=== PATIENT | female | born 1960 | race Caucasian/White ===

== ENCOUNTER 2017-09-09 16:03 | Inpatient (IN) | payer MEDICARE, MEDICAID ==
[~2017-09-09] VITALS: Ht 165.1 cm; Wt 53.4 kg
[~2017-09-09 16:03] MED LIST: CEPH-571 PO
[2017-09-09 16:39] LABS: BASOPHILS % (AUTO) 0.1 % (0-1); EOSINOPHILS # (AUTO) 0.2 X10'3 (0-0.9); EOSINOPHILS % (AUTO) 1.5 % (0-6); HEMOGLOBIN 9.7 g/dl (12.0-16.0); LYMPHOCYTES # (AUTO) 0.4 X10'3 (1.1-4.8); LYMPHOCYTES % (AUTO) 4.1 % (21-51); MEAN CORPUSCULAR HEMOGLOBIN 30.4 PG (27.0-31.0); MEAN CORPUSCULAR HGB CONC 34.7 % (33.0-36.5); MEAN CORPUSCULAR VOLUME 87.6 FL (78-98); MEAN PLATELET VOLUME 6.4 FL (7.4-10.4); MONOCYTES # (AUTO) 0.6 X10'3 (0-0.9); MONOCYTES % (AUTO) 5.3 % (2-12); NEUTROPHILS # (AUTO) 9.8 X10'3 (1.8-7.7); PLATELET COUNT 511 X10'3 (140-440)
[2017-09-09 16:49] LABS: PROTHROMBIN TIME 10.2 SECONDS (9.0-12.0)
[2017-09-09 16:55] LABS: ALANINE AMINOTRANSFERASE 19 U/L (12-78); ALBUMIN 2.5 G/DL (3.4-5.0); ALBUMIN/GLOBULIN RATIO 0.6 (1.1-1.5); ALKALINE PHOSPHATASE 86 IU/L (46-116); ANION GAP 12 (8-16); ASPARTATE AMINO TRANSFERASE 16 U/L (10-37); BILIRUBIN,TOTAL 0.3 MG/DL (0.1-1.0); BLOOD UREA NITROGEN 75 MG/DL (7-18); CALCIUM 8.7 MG/DL (8.5-10.1); CHLORIDE 93 MMOL/L (99-107); GLUCOSE 116 MG/DL (70-104); SODIUM 135 MMOL/L (135-145); TOTAL PROTEIN 6.5 G/DL (6.4-8.2); eGFR 3 ML/MIN
[2017-09-09] MEDS ORDERED: VANCOMYCIN IP PRN (21:35)
[2017-09-09] MEDS ORDERED: CEFTAZIDIME IP PRN (21:35)
[2017-09-09] MEDS ORDERED: PERIT DIALYSIS IP PRN (21:35)
[2017-09-09] MEDS ORDERED: DEXT IP PRN (21:35)
[2017-09-09 22:17] LABS: LIPASE 201 U/L (73-393)
[2017-09-10] VITALS (19 sets, daily range): BP systolic 120–188; BP diastolic 80–113
[2017-09-10] MEDS: ipratropium/albuterol 3ml nebule NEB SCH ×3 (00:05→13:04)
[2017-09-10 01:35] LABS: LDH,BODY FLUID 181 U/L
[2017-09-10 01:46] LABS: TOTAL PROTEIN,BODY FLUID < 2.0 G/DL
[2017-09-10] MEDS: pantoprazole 40 MG vial IV SCH ×2 (01:54→08:41)
[2017-09-10 02:36] LABS: BF WBC COUNT 15000 /CU MM (0-1000); BFAPPEAR CLOUDY; BFCOLOR STRAW; BFVOLUME 5 ML
[2017-09-10 02:37] LABS: BF RBC COUNT 121 /CU MM
[2017-09-10 02:44] LABS: LYMPHOCYTES,BODY FLUID 17 %; MONOCYTES,BODY FLUID 12 %; NEUTROPHILS,BODY FLUID 68 %
[2017-09-10 02:45] LABS: BF MESOTHELIAL CELLS MODERATE; EOSINOPHILS,BODY FLUID 3 %
[2017-09-10 06:40] LABS: BASOPHILS % (AUTO) 0.5 % (0-1); EOSINOPHILS # (AUTO) 0.2 X10'3 (0-0.9); EOSINOPHILS % (AUTO) 2.6 % (0-6); HEMATOCRIT 24.9 % (35.0-45.0); HEMOGLOBIN 8.6 g/dl (12.0-16.0); LYMPHOCYTES # (AUTO) 0.7 X10'3 (1.1-4.8); LYMPHOCYTES % (AUTO) 9.3 % (21-51); MEAN CORPUSCULAR HEMOGLOBIN 30.1 PG (27.0-31.0); MEAN CORPUSCULAR HGB CONC 34.6 % (33.0-36.5); MEAN CORPUSCULAR VOLUME 87.2 FL (78-98); MEAN PLATELET VOLUME 6.7 FL (7.4-10.4); MONOCYTES # (AUTO) 0.7 X10'3 (0-0.9); MONOCYTES % (AUTO) 8.6 % (2-12); PLATELET COUNT 415 X10'3 (140-440); RED BLOOD COUNT 2.86 X10'6 (4.20-5.60); RED CELL DISTRIBUTION WIDTH 14.7 % (11.5-14.5); WHITE BLOOD COUNT 7.6 X10'3 (4.5-11.0)
[2017-09-10 06:51] LABS: PARTIAL THROMBOPLASTIN TIME 30 SECONDS (22-32); PROTHROMBIN TIME 10.2 SECONDS (9.0-12.0)
[2017-09-10] MEDS ORDERED: ALBU2.5V12 NEB (07:01)
[2017-09-10] MEDS ORDERED: MYCO360T3 PO (07:03)
[2017-09-10] MEDS ORDERED: TACR5CAP8 PO (07:05)
[2017-09-10] MEDS ORDERED: TACR1CAP28 PO (07:06)
[2017-09-10] MEDS ORDERED: DILT120T4 PO (07:08)
[2017-09-10] MEDS ORDERED: DOXE50CA4 PO (07:10)
[2017-09-10] MEDS ORDERED: DOXE10CA2 PO (07:10)
[2017-09-10] MEDS ORDERED: CHOL500026 PO (07:12)
[2017-09-10] MEDS ORDERED: CINA30TA PO (07:13)
[2017-09-10] MEDS ORDERED: ERGO500054 PO (07:15)
[2017-09-10] MEDS ORDERED: TRAM50TA2 PO ×2 (07:16→10:50)
[2017-09-10] MEDS ORDERED: SEVE800T8 PO (07:19)
[2017-09-10] MEDS ORDERED: TIOT4MIS5 (07:20)
[2017-09-10] MEDS ORDERED: ALBU18HF2 INH (07:21)
[2017-09-10 07:25] LABS: ALANINE AMINOTRANSFERASE 16 U/L (12-78); ALBUMIN 2.1 G/DL (3.4-5.0); ALBUMIN/GLOBULIN RATIO 0.6 (1.1-1.5); ALKALINE PHOSPHATASE 70 IU/L (46-116); ANION GAP 14 (8-16); ASPARTATE AMINO TRANSFERASE 14 U/L (10-37); BILIRUBIN,TOTAL 0.3 MG/DL (0.1-1.0); BLOOD UREA NITROGEN 73 MG/DL (7-18); BUN/CREATININE RATIO 5.8 (6.6-38.0); CALCIUM 8.5 MG/DL (8.5-10.1); CHLORIDE 95 MMOL/L (99-107); GLUCOSE 84 MG/DL (70-104); MAGNESIUM 1.4 MG/DL (1.5-2.4); PHOSPHORUS 7.5 MG/DL (2.3-4.5); SODIUM 137 MMOL/L (135-145); TOTAL CARBON DIOXIDE 27.8 MMOL/L (24-32); TOTAL PROTEIN 5.6 G/DL (6.4-8.2); eGFR 3 ML/MIN
[2017-09-10] MEDS ORDERED: GENT30OI2 TOP (07:30)
[2017-09-10] MEDS: morphine 4 MG/ML inj SYRINge IV PRN (08:50)
[2017-09-10] MEDS ORDERED: albuterol 2.5 MG/3 ML nebule NEB PRN (09:35)
[2017-09-10] MEDS: diltiazem CD 120mg capsule (once-daily) PO SCH (10:29)
[2017-09-10] MEDS: heparin, porcine 5000 units/ml vial SQ SCH ×2 (10:30→20:45)
[2017-09-10] MEDS ORDERED: MONT10TA24 PO (10:54)
[2017-09-10] MEDS: sevelamer carbonate 800mg tablet PO SCH ×2 (12:30→17:30)
[2017-09-10] MEDS: ipratropium 0.5 MG/2.5ML nebule NEB SCH ×3 (13:16→21:32)
[2017-09-10] MEDS: cinacalcet 30mg tablet PO SCH ×2 (13:33→20:52)
[2017-09-10] MEDS ORDERED: non-formulary drug (Albuterol Sulfate 1 VIAL) NEB SCH (14:00)
[2017-09-10] MEDS ORDERED: traMADol 50MG tablet PO PRN (14:00)
[2017-09-10] MEDS ORDERED: vancomycin/NS 1 GM ADD-VANTAGE 250 ML IV PRN (15:00)
[2017-09-10] MEDS: piperacillin-tazo 2.25gm/50ml 50 ML IV SCH ×2 (15:00→20:43)
[2017-09-10] MEDS ORDERED: LIDOcaine 1% 30ml vial 30 ML ONE (15:31)
[2017-09-10] MEDS ORDERED: povidone-iodine 10% topical ointment 28.4gm TP ONE (15:31)
[2017-09-10] MEDS ORDERED: vancomycin/NS 1 GM ADD-VANTAGE 250 ML IV ONE (15:45)
[2017-09-10] MEDS: gentamicin 0.1% topical ointment 15gm TP SCH (16:00)
[2017-09-10] MEDS ORDERED: ringers solution, lacted 1,000 ML IV SCH (16:47)
[2017-09-10] MEDS ORDERED: ondansetron/PF 4mg/2ml inj IV PRN (16:50)
[2017-09-10] MEDS ORDERED: morphine 4 MG/ML inj SYRINge IV PRN ×2 (16:50)
[2017-09-10] MEDS ORDERED: proCHLORperazine 10 MG/2 ml inj IV PRN (16:50)
[2017-09-10] MEDS ORDERED: BUPIVAcaine/PF 2.5 mg/ml (0.25%) 30ml vial ONE (17:01)
[2017-09-10] MEDS ORDERED: sevoflurane 250ml liquid IH ONE (17:15)
[2017-09-10 17:16] LABS: ISTAT CREATININE 13.5 mg/dL (0.6-1.1); ISTAT HGB 8.2 g/dl (12.0-16.0); ISTAT IONIZED CALCIUM 1.05 mmol/L (1.03-1.32); POC BUN/CREATININE RATIO 5.9 (6.6-38.0)
[2017-09-10] MEDS ORDERED: Potassium Cl 40 MEQ in NS 500 ML IV ONE (17:20)
[2017-09-10] MEDS ORDERED: fentaNYL/PF 50MCG/1 ML 2ML syringe ONE (17:25)
[2017-09-10] MEDS ORDERED: midazolam 2 mg/2 ml injection ONE (17:30)
[2017-09-10 17:36] LABS: ISTAT K 2.8 mmol/L (3.5-5.1)
[2017-09-10] MEDS ORDERED: propofol inj 20 ML IV ONE (17:50)
[2017-09-10] MEDS ORDERED: LIDOcaine 2% (20mg/ml) 5ml vial ONE (17:51)
[2017-09-10] MEDS: ondansetron/PF 4mg/2ml inj IV PRN (20:40)
[2017-09-10] MEDS: doxepin 10mg capsule PO SCH (20:50)
[2017-09-10] MEDS: tacrolimus anhydrous 1mg capsule PO SCH ×2 (20:51→20:52)
[2017-09-10] MEDS: mycophenolate sod SR tablet 180 MG TABLET.DR PO SCH (20:51)
[2017-09-11] MEDS: ipratropium 0.5 MG/2.5ML nebule NEB SCH ×3 (02:00→20:44)
[2017-09-11] MEDS: piperacillin-tazo 2.25gm/50ml 50 ML IV SCH ×4 (02:03→21:31)
[2017-09-11 02:45] VITALS: BP 138/75
[2017-09-11] MEDS: VANCOMYCIN LEVEL IV SCH (03:00)
[2017-09-11] MEDS: heparin 1,000 units/ml 10ml inj HE ONE ×2 (05:23→17:02)
[2017-09-11] MEDS: heparin, porcine 5000 units/ml vial SQ SCH ×2 (05:26→21:50)
[2017-09-11 06:00] VITALS: BP 143/81
[2017-09-11] MEDS: sevelamer carbonate 800mg tablet PO SCH ×3 (07:30→21:29)
[2017-09-11 07:37] LABS: BASOPHILS % (AUTO) 0.2 % (0-1); EOSINOPHILS # (AUTO) 0.4 X10'3 (0-0.9); EOSINOPHILS % (AUTO) 4.8 % (0-6); HEMATOCRIT 23.7 % (35.0-45.0); HEMOGLOBIN 8.1 g/dl (12.0-16.0); LYMPHOCYTES # (AUTO) 0.7 X10'3 (1.1-4.8); LYMPHOCYTES % (AUTO) 9.3 % (21-51); MEAN CORPUSCULAR HEMOGLOBIN 30.3 PG (27.0-31.0); MEAN CORPUSCULAR HGB CONC 34.4 % (33.0-36.5); MEAN CORPUSCULAR VOLUME 88.2 FL (78-98); MEAN PLATELET VOLUME 6.4 FL (7.4-10.4); MONOCYTES # (AUTO) 0.5 X10'3 (0-0.9); MONOCYTES % (AUTO) 7.1 % (2-12); NEUTROPHILS # (AUTO) 5.9 X10'3 (1.8-7.7); NEUTROPHILS % (AUTO) 78.6 % (42-75); PLATELET COUNT 371 X10'3 (140-440); RED BLOOD COUNT 2.69 X10'6 (4.20-5.60); RED CELL DISTRIBUTION WIDTH 14.8 % (11.5-14.5); WHITE BLOOD COUNT 7.6 X10'3 (4.5-11.0)
[2017-09-11 07:48] LABS: PARTIAL THROMBOPLASTIN TIME 29 SECONDS (22-32); PROTHROMBIN TIME 10.2 SECONDS (9.0-12.0)
[2017-09-11] MEDS: gentamicin 0.1% topical ointment 15gm TP SCH ×3 (08:00→15:56)
[2017-09-11] MEDS ORDERED: heparin 1,000unit/ml 10ml vial 10 ML IV ONE (08:00)
[2017-09-11] MEDS ORDERED: normal saline 1000ml 250 ML IV PRN (08:00)
[2017-09-11] MEDS ORDERED: TIOTROPIUM BROMIDE SCH (08:00)
[2017-09-11] MEDS ORDERED: heparin 1,000 units/ml 10ml inj HE ONE (08:00)
[2017-09-11] MEDS ORDERED: epoetin 20,000 units/ml inj IV ONE (08:00)
[2017-09-11 08:01] LABS: ALANINE AMINOTRANSFERASE 17 U/L (12-78); ALBUMIN/GLOBULIN RATIO 0.6 (1.1-1.5); ALKALINE PHOSPHATASE 69 IU/L (46-116); ANION GAP 14 (8-16); ASPARTATE AMINO TRANSFERASE 16 U/L (10-37); BILIRUBIN,TOTAL 0.3 MG/DL (0.1-1.0); BLOOD UREA NITROGEN 79 MG/DL (7-18); BUN/CREATININE RATIO 5.7 (6.6-38.0); CALCIUM 7.2 MG/DL (8.5-10.1); CHLORIDE 97 MMOL/L (99-107); GLUCOSE 84 MG/DL (70-104); MAGNESIUM 1.5 MG/DL (1.5-2.4); PHOSPHORUS 7.9 MG/DL (2.3-4.5); POTASSIUM 3.2 MMOL/L (3.5-5.1); SODIUM 137 MMOL/L (135-145); TOTAL CARBON DIOXIDE 26.1 MMOL/L (24-32); TOTAL PROTEIN 5.3 G/DL (6.4-8.2); eGFR 3 ML/MIN
[2017-09-11 08:12] LABS: VANCOMYCIN,TROUGH 30.4 UG/ML (6.0-14.0)
[2017-09-11 08:33] VITALS: BP 145/81
[2017-09-11] MEDS ORDERED: midazolam 2 mg/2 ml injection IV PRN (09:00)
[2017-09-11] MEDS ORDERED: LIDOcaine 1%/PF (10mg/ml) 5ml vial SQ ONE (09:00)
[2017-09-11] MEDS ORDERED: fentaNYL/PF 50MCG/1 ML 2ML syringe IV PRN (09:00)
[2017-09-11] MEDS ORDERED: LIDOcaine 1%/PF (10mg/ml) 5ml vial ONE (09:29)
[2017-09-11] MEDS ORDERED: fentaNYL/PF 50MCG/1 ML 2ML syringe ONE (09:34)
[2017-09-11] MEDS ORDERED: heparin 1,000unit/ml 10ml vial 10 ML ONE (09:34)
[2017-09-11 10:30] VITALS: BP 159/94
[2017-09-11] MEDS: pantoprazole 40 MG vial IV SCH (10:42)
[2017-09-11] MEDS: morphine 4 MG/ML inj SYRINge IV PRN ×2 (10:43→16:45)
[2017-09-11] MEDS: cinacalcet 30mg tablet PO SCH ×3 (10:45→21:44)
[2017-09-11] MEDS: vitamin D (cholecalciferol) 1,000 unit tablet PO SCH (10:45)
[2017-09-11] MEDS: tacrolimus anhydrous 1mg capsule PO SCH ×4 (10:45→21:43)
[2017-09-11] MEDS: diltiazem CD 120mg capsule (once-daily) PO SCH (10:46)
[2017-09-11] MEDS: mycophenolate sod SR tablet 180 MG TABLET.DR PO SCH ×2 (10:46→21:42)
[2017-09-11] MEDS: ondansetron/PF 4mg/2ml inj IV PRN (16:57)
[2017-09-11 18:00] VITALS: BP 150/93
[2017-09-11] MEDS: doxepin 10mg capsule PO SCH (21:42)
[2017-09-11] MEDS: lactobacillus rhamnosus 10,000 MMU CELLS/CAPSULE PO SCH (21:42)
[2017-09-11 22:00] VITALS: BP 164/99
[2017-09-12] MEDS: piperacillin-tazo 2.25gm/50ml 50 ML IV SCH ×4 (01:47→20:00)
[2017-09-12] MEDS: morphine 4 MG/ML inj SYRINge IV PRN ×3 (01:57→18:59)
[2017-09-12] MEDS: VANCOMYCIN LEVEL IV SCH ×2 (03:00→23:26)
[2017-09-12 05:17] LABS: BASOPHILS % (AUTO) 0.2 % (0-1); EOSINOPHILS # (AUTO) 0.4 X10'3 (0-0.9); EOSINOPHILS % (AUTO) 5.5 % (0-6); HEMATOCRIT 22.9 % (35.0-45.0); HEMOGLOBIN 7.9 g/dl (12.0-16.0); LYMPHOCYTES # (AUTO) 0.8 X10'3 (1.1-4.8); LYMPHOCYTES % (AUTO) 12.1 % (21-51); MEAN CORPUSCULAR HEMOGLOBIN 29.9 PG (27.0-31.0); MEAN CORPUSCULAR HGB CONC 34.3 % (33.0-36.5); MEAN CORPUSCULAR VOLUME 87.4 FL (78-98); MEAN PLATELET VOLUME 6.4 FL (7.4-10.4); MONOCYTES # (AUTO) 0.5 X10'3 (0-0.9); MONOCYTES % (AUTO) 7.8 % (2-12); NEUTROPHILS # (AUTO) 4.9 X10'3 (1.8-7.7); NEUTROPHILS % (AUTO) 74.4 % (42-75); PLATELET COUNT 320 X10'3 (140-440); RED BLOOD COUNT 2.62 X10'6 (4.20-5.60); RED CELL DISTRIBUTION WIDTH 14.8 % (11.5-14.5); WHITE BLOOD COUNT 6.6 X10'3 (4.5-11.0)
[2017-09-12 05:57] LABS: PARTIAL THROMBOPLASTIN TIME 30 SECONDS (22-32)
[2017-09-12 06:00] VITALS: BP 142/86
[2017-09-12 06:08] LABS: ALANINE AMINOTRANSFERASE 16 U/L (12-78); ALBUMIN 1.7 G/DL (3.4-5.0); ALBUMIN/GLOBULIN RATIO 0.5 (1.1-1.5); ALKALINE PHOSPHATASE 81 IU/L (46-116); ANION GAP 8 (8-16); ASPARTATE AMINO TRANSFERASE 23 U/L (10-37); BILIRUBIN,TOTAL 0.2 MG/DL (0.1-1.0); BLOOD UREA NITROGEN 16 MG/DL (7-18); BUN/CREATININE RATIO 3.2 (6.6-38.0); CALCIUM 7.4 MG/DL (8.5-10.1); CHLORIDE 103 MMOL/L (99-107); CREATININE 4.96 MG/DL (0.40-0.90); GLUCOSE 84 MG/DL (70-104); MAGNESIUM 1.5 MG/DL (1.5-2.4); PHOSPHORUS 3.3 MG/DL (2.3-4.5); POTASSIUM 3.8 MMOL/L (3.5-5.1); SODIUM 140 MMOL/L (135-145); TOTAL PROTEIN 5.1 G/DL (6.4-8.2); VANCOMYCIN,TROUGH 17.8 UG/ML (6.0-14.0); eGFR 9 ML/MIN
[2017-09-12] MEDS: ipratropium 0.5 MG/2.5ML nebule NEB SCH ×5 (08:00→20:18)
[2017-09-12] MEDS: gentamicin 0.1% topical ointment 15gm TP SCH ×3 (08:00→16:00)
[2017-09-12] MEDS: pantoprazole 40mg Tablet.DR PO SCH (08:30)
[2017-09-12] MEDS: mycophenolate sod SR tablet 180 MG TABLET.DR PO SCH ×2 (08:30→19:59)
[2017-09-12] MEDS: lactobacillus rhamnosus 10,000 MMU CELLS/CAPSULE PO SCH ×2 (08:30→19:59)
[2017-09-12] MEDS: sevelamer carbonate 800mg tablet PO SCH ×3 (08:30→18:55)
[2017-09-12] MEDS: cinacalcet 30mg tablet PO SCH ×3 (08:31→19:59)
[2017-09-12] MEDS: tacrolimus anhydrous 1mg capsule PO SCH ×3 (08:31→20:00)
[2017-09-12] MEDS: diltiazem CD 120mg capsule (once-daily) PO SCH (08:31)
[2017-09-12] MEDS: vitamin D (cholecalciferol) 1,000 unit tablet PO SCH (08:31)
[2017-09-12] MEDS: heparin, porcine 5000 units/ml vial SQ SCH ×2 (08:32→20:00)
[2017-09-12 10:00] VITALS: BP 133/84
[2017-09-12 18:00] VITALS: BP 147/83
[2017-09-12] MEDS: doxepin 10mg capsule PO SCH (19:59)
[2017-09-12 22:00] VITALS: BP 166/96
[2017-09-13] MEDS: ondansetron/PF 4mg/2ml inj IV PRN ×2 (01:17→19:45)
[2017-09-13] MEDS: piperacillin-tazo 2.25gm/50ml 50 ML IV SCH ×4 (01:20→19:48)
[2017-09-13] MEDS: ipratropium 0.5 MG/2.5ML nebule NEB SCH ×4 (02:00→21:21)
[2017-09-13 06:00] VITALS: BP 131/38
[2017-09-13 07:34] LABS: BASOPHILS % (AUTO) 0.4 % (0-1); EOSINOPHILS # (AUTO) 0.4 X10'3 (0-0.9); EOSINOPHILS % (AUTO) 5.1 % (0-6); HEMATOCRIT 24.5 % (35.0-45.0); HEMOGLOBIN 8.4 g/dl (12.0-16.0); LYMPHOCYTES # (AUTO) 0.8 X10'3 (1.1-4.8); LYMPHOCYTES % (AUTO) 9.8 % (21-51); MEAN CORPUSCULAR HEMOGLOBIN 30.3 PG (27.0-31.0); MEAN CORPUSCULAR HGB CONC 34.3 % (33.0-36.5); MEAN CORPUSCULAR VOLUME 88.2 FL (78-98); MEAN PLATELET VOLUME 6.2 FL (7.4-10.4); MONOCYTES # (AUTO) 0.5 X10'3 (0-0.9); MONOCYTES % (AUTO) 6.3 % (2-12); NEUTROPHILS # (AUTO) 6.2 X10'3 (1.8-7.7); NEUTROPHILS % (AUTO) 78.4 % (42-75); PLATELET COUNT 331 X10'3 (140-440); RED BLOOD COUNT 2.77 X10'6 (4.20-5.60); RED CELL DISTRIBUTION WIDTH 14.4 % (11.5-14.5); WHITE BLOOD COUNT 7.9 X10'3 (4.5-11.0)
[2017-09-13 07:44] LABS: PARTIAL THROMBOPLASTIN TIME 29 SECONDS (22-32); PROTHROMBIN TIME 10.2 SECONDS (9.0-12.0)
[2017-09-13 07:58] LABS: ALANINE AMINOTRANSFERASE 24 U/L (12-78); ALBUMIN 1.8 G/DL (3.4-5.0); ALBUMIN/GLOBULIN RATIO 0.5 (1.1-1.5); ALKALINE PHOSPHATASE 89 IU/L (46-116); ANION GAP 13 (8-16); ASPARTATE AMINO TRANSFERASE 19 U/L (10-37); BILIRUBIN,TOTAL 0.3 MG/DL (0.1-1.0); BLOOD UREA NITROGEN 22 MG/DL (7-18); CALCIUM 6.7 MG/DL (8.5-10.1); CHLORIDE 99 MMOL/L (99-107); CREATININE 7.38 MG/DL (0.40-0.90); GLUCOSE 103 MG/DL (70-104); MAGNESIUM 1.4 MG/DL (1.5-2.4); PHOSPHORUS 3.7 MG/DL (2.3-4.5); POTASSIUM 3.7 MMOL/L (3.5-5.1); SODIUM 139 MMOL/L (135-145); TOTAL CARBON DIOXIDE 27.5 MMOL/L (24-32); TOTAL PROTEIN 5.4 G/DL (6.4-8.2); VANCOMYCIN,RANDOM 18.1 UG/ML; eGFR 6 ML/MIN
[2017-09-13] MEDS: cinacalcet 30mg tablet PO SCH ×3 (08:00→19:51)
[2017-09-13] MEDS: gentamicin 0.1% topical ointment 15gm TP SCH ×4 (08:00→23:48)
[2017-09-13 10:00] VITALS: BP 150/102
[2017-09-13] MEDS: tacrolimus anhydrous 1mg capsule PO SCH ×2 (10:34→19:49)
[2017-09-13] MEDS: sevelamer carbonate 800mg tablet PO SCH ×3 (10:35→17:39)
[2017-09-13] MEDS: vitamin D (cholecalciferol) 1,000 unit tablet PO SCH (10:35)
[2017-09-13] MEDS: diltiazem CD 120mg capsule (once-daily) PO SCH (10:35)
[2017-09-13] MEDS: mycophenolate sod SR tablet 180 MG TABLET.DR PO SCH ×2 (10:35→19:51)
[2017-09-13] MEDS: lactobacillus rhamnosus 10,000 MMU CELLS/CAPSULE PO SCH ×2 (10:51→19:50)
[2017-09-13] MEDS: pantoprazole 40mg Tablet.DR PO SCH (10:52)
[2017-09-13] MEDS: heparin, porcine 5000 units/ml vial SQ SCH ×2 (10:52→19:50)
[2017-09-13 19:45] VITALS: BP 166/99
[2017-09-13] MEDS: doxepin 10mg capsule PO SCH (19:50)
[2017-09-14] MEDS: piperacillin-tazo 2.25gm/50ml 50 ML IV SCH ×2 (02:24→08:15)
[2017-09-14] MEDS: VANCOMYCIN LEVEL IV SCH (02:49)
[2017-09-14] MEDS: ipratropium 0.5 MG/2.5ML nebule NEB SCH ×3 (03:06→15:05)
[2017-09-14 06:00] VITALS: BP 162/103
[2017-09-14 07:07] LABS: BASOPHILS % (AUTO) 0.3 % (0-1); EOSINOPHILS # (AUTO) 0.4 X10'3 (0-0.9); EOSINOPHILS % (AUTO) 4.6 % (0-6); HEMOGLOBIN 8.6 g/dl (12.0-16.0); LYMPHOCYTES % (AUTO) 12.1 % (21-51); MEAN CORPUSCULAR HEMOGLOBIN 30.1 PG (27.0-31.0); MEAN CORPUSCULAR HGB CONC 34.2 % (33.0-36.5); MEAN CORPUSCULAR VOLUME 88.1 FL (78-98); MEAN PLATELET VOLUME 6.2 FL (7.4-10.4); MONOCYTES # (AUTO) 0.6 X10'3 (0-0.9); MONOCYTES % (AUTO) 6.8 % (2-12); NEUTROPHILS # (AUTO) 6.5 X10'3 (1.8-7.7); NEUTROPHILS % (AUTO) 76.2 % (42-75); PLATELET COUNT 337 X10'3 (140-440); RED BLOOD COUNT 2.84 X10'6 (4.20-5.60); RED CELL DISTRIBUTION WIDTH 14.4 % (11.5-14.5); WHITE BLOOD COUNT 8.6 X10'3 (4.5-11.0)
[2017-09-14 07:22] LABS: PARTIAL THROMBOPLASTIN TIME 30 SECONDS (22-32); PROTHROMBIN TIME 10.4 SECONDS (9.0-12.0)
[2017-09-14 07:30] LABS: ALANINE AMINOTRANSFERASE 23 U/L (12-78); ALBUMIN 1.8 G/DL (3.4-5.0); ALBUMIN/GLOBULIN RATIO 0.5 (1.1-1.5); ALKALINE PHOSPHATASE 100 IU/L (46-116); ANION GAP 14 (8-16); ASPARTATE AMINO TRANSFERASE 21 U/L (10-37); BILIRUBIN,TOTAL 0.3 MG/DL (0.1-1.0); BLOOD UREA NITROGEN 24 MG/DL (7-18); BUN/CREATININE RATIO 2.6 (6.6-38.0); CALCIUM 6.7 MG/DL (8.5-10.1); CHLORIDE 97 MMOL/L (99-107); CREATININE 9.36 MG/DL (0.40-0.90); GLUCOSE 84 MG/DL (70-104); MAGNESIUM 1.4 MG/DL (1.5-2.4); PHOSPHORUS 4.4 MG/DL (2.3-4.5); POTASSIUM 3.9 MMOL/L (3.5-5.1); SODIUM 136 MMOL/L (135-145); TOTAL CARBON DIOXIDE 25.2 MMOL/L (24-32); TOTAL PROTEIN 5.5 G/DL (6.4-8.2); VANCOMYCIN,RANDOM 17.7 UG/ML; eGFR 4 ML/MIN
[2017-09-14] MEDS: gentamicin 0.1% topical ointment 15gm TP SCH ×2 (08:00→16:00)
[2017-09-14] MEDS: sevelamer carbonate 800mg tablet PO SCH ×3 (08:14→17:38)
[2017-09-14] MEDS: pantoprazole 40mg Tablet.DR PO SCH (08:15)
[2017-09-14] MEDS: diltiazem CD 120mg capsule (once-daily) PO SCH (08:15)
[2017-09-14] MEDS: lactobacillus rhamnosus 10,000 MMU CELLS/CAPSULE PO SCH ×2 (08:15→20:35)
[2017-09-14] MEDS: cinacalcet 30mg tablet PO SCH ×3 (08:16→20:35)
[2017-09-14] MEDS: vitamin D (cholecalciferol) 1,000 unit tablet PO SCH (08:16)
[2017-09-14] MEDS: mycophenolate sod SR tablet 180 MG TABLET.DR PO SCH ×2 (08:17→21:26)
[2017-09-14] MEDS: tacrolimus anhydrous 1mg capsule PO SCH ×2 (08:18→20:35)
[2017-09-14] MEDS: heparin, porcine 5000 units/ml vial SQ SCH ×2 (08:21→20:35)
[2017-09-14 10:00] VITALS: BP 163/104
[2017-09-14] MEDS: morphine 4 MG/ML inj SYRINge IV PRN (13:19)
[2017-09-14 19:00] VITALS: BP 167/107
[2017-09-14] MEDS: doxepin 10mg capsule PO SCH (20:35)
[2017-09-14 22:00] VITALS: BP 170/122
[2017-09-15 01:05] VITALS: BP 165/69
[2017-09-15] MEDS: ondansetron/PF 4mg/2ml inj IV PRN (01:07)
[2017-09-15 06:37] LABS: BASOPHILS % (AUTO) 0.3 % (0-1); EOSINOPHILS # (AUTO) 0.3 X10'3 (0-0.9); EOSINOPHILS % (AUTO) 3.9 % (0-6); HEMATOCRIT 28.8 % (35.0-45.0); HEMOGLOBIN 9.9 g/dl (12.0-16.0); LYMPHOCYTES # (AUTO) 1.4 X10'3 (1.1-4.8); LYMPHOCYTES % (AUTO) 15.6 % (21-51); MEAN CORPUSCULAR HEMOGLOBIN 30.4 PG (27.0-31.0); MEAN CORPUSCULAR HGB CONC 34.3 % (33.0-36.5); MEAN CORPUSCULAR VOLUME 88.7 FL (78-98); MEAN PLATELET VOLUME 6.4 FL (7.4-10.4); MONOCYTES # (AUTO) 0.5 X10'3 (0-0.9); MONOCYTES % (AUTO) 5.6 % (2-12); NEUTROPHILS # (AUTO) 6.6 X10'3 (1.8-7.7); NEUTROPHILS % (AUTO) 74.6 % (42-75); PLATELET COUNT 402 X10'3 (140-440); RED BLOOD COUNT 3.24 X10'6 (4.20-5.60); RED CELL DISTRIBUTION WIDTH 14.6 % (11.5-14.5); WHITE BLOOD COUNT 8.8 X10'3 (4.5-11.0)
[2017-09-15 06:39] LABS: PARTIAL THROMBOPLASTIN TIME 30 SECONDS (22-32); PROTHROMBIN TIME 10.7 SECONDS (9.0-12.0)
[2017-09-15 07:03] LABS: ALANINE AMINOTRANSFERASE 27 U/L (12-78); ALBUMIN 1.9 G/DL (3.4-5.0); ALBUMIN/GLOBULIN RATIO 0.5 (1.1-1.5); ALKALINE PHOSPHATASE 127 IU/L (46-116); ANION GAP 15 (8-16); ASPARTATE AMINO TRANSFERASE 20 U/L (10-37); BILIRUBIN,TOTAL 0.3 MG/DL (0.1-1.0); BLOOD UREA NITROGEN 30 MG/DL (7-18); BUN/CREATININE RATIO 2.7 (6.6-38.0); CHLORIDE 96 MMOL/L (99-107); CREATININE 11.12 MG/DL (0.40-0.90); GLUCOSE 82 MG/DL (70-104); MAGNESIUM 1.6 MG/DL (1.5-2.4); PHOSPHORUS 5.2 MG/DL (2.3-4.5); POTASSIUM 4.1 MMOL/L (3.5-5.1); SODIUM 136 MMOL/L (135-145); TOTAL CARBON DIOXIDE 24.8 MMOL/L (24-32); TOTAL PROTEIN 5.8 G/DL (6.4-8.2); VANCOMYCIN,RANDOM 16.7 UG/ML; eGFR 4 ML/MIN
[2017-09-15] MEDS: heparin, porcine 5000 units/ml vial SQ SCH (08:00)
[2017-09-15] MEDS: gentamicin 0.1% topical ointment 15gm TP SCH ×2 (08:00)
[2017-09-15] MEDS: ipratropium 0.5 MG/2.5ML nebule NEB SCH (08:17)
[2017-09-15] MEDS: diltiazem CD 120mg capsule (once-daily) PO SCH (09:08)
[2017-09-15] MEDS: sevelamer carbonate 800mg tablet PO SCH (09:08)
[2017-09-15] MEDS: pantoprazole 40mg Tablet.DR PO SCH (09:09)
[2017-09-15] MEDS: lactobacillus rhamnosus 10,000 MMU CELLS/CAPSULE PO SCH (09:09)
[2017-09-15] MEDS: cinacalcet 30mg tablet PO SCH (09:10)
[2017-09-15] MEDS: tacrolimus anhydrous 1mg capsule PO SCH (09:10)
[2017-09-15] MEDS ORDERED: MYCOPHENOLATE SODIUM 360 MG PO SCH (09:29)
[2017-09-15] MEDS ORDERED: mycophenolate sod SR tablet 180 MG TABLET.DR PO SCH (20:00)
== END 2017-09-15 11:00 | disposition home or self-care (01) | DRG 981 ==
LOC: ER 16:03 → ED HOLD 21:02 → EDBEDREQ 22:37 → ORTHO 4S 23:40
PROVIDERS: ATTEND Internal Medicine Critical Care Medicine
PROC: 3E1M39Z Irrigation of Peritoneal Cavity using Dialysate, Percutaneous Approach (ICD-10-PCS; 2017-09-09)
PROC: 3E1M39Z Irrigation of Peritoneal Cavity using Dialysate, Percutaneous Approach (ICD-10-PCS; 2017-09-10)
PROC: 0WPG33Z Removal of Infusion Device from Peritoneal Cavity, Percutaneous Approach (ICD-10-PCS; principal; 2017-09-10 17:15)
PROC: 0JH63XZ Insertion of Tunneled Vascular Access Device into Chest Subcutaneous Tissue and Fascia, Percutaneous Approach (ICD-10-PCS; 2017-09-11)
PROC: 02HV33Z Insertion of Infusion Device into Superior Vena Cava, Percutaneous Approach (ICD-10-PCS; 2017-09-11)
PROC: B5181ZA Fluoroscopy of Superior Vena Cava using Low Osmolar Contrast, Guidance (ICD-10-PCS; 2017-09-11)
PROC: B548ZZA Ultrasonography of Superior Vena Cava, Guidance (ICD-10-PCS; 2017-09-11)
PROC: 5A1D70Z Performance of Urinary Filtration, Intermittent, Less than 6 Hours Per Day (ICD-10-PCS; 2017-09-11)
DX: T85.71XA Infection and inflammatory reaction due to peritoneal dialysis catheter, initial encounter (principal); K65.9 Peritonitis, unspecified; T86.12 Kidney transplant failure; N18.6 End stage renal disease; Z94.0 Kidney transplant status; J45.909 Unspecified asthma, uncomplicated; Y84.1 Kidney dialysis as the cause of abnormal reaction of the patient, or of later complication, without mention of misadventure at the time of the procedure; B95.62 Methicillin resistant Staphylococcus aureus infection as the cause of diseases classified elsewhere; K59.00 Constipation, unspecified; Z99.2 Dependence on renal dialysis; Z90.5 Acquired absence of kidney; Z79.899 Other long term (current) drug therapy; Y92.89 Other specified places as the place of occurrence of the external cause
CPT/HCPCS: 36415; 36558; 74176; 76536; 76937; 77001; 80047; 80053; 80202; 82948; 83605; 83615; 83690; 83735; 84100; 84145; 84157; 84443; 85025; 85610; 85730; 87015; 87040; 87070; 87075; 87077; 87186; 89051; 90935; 93005; 94640; 94760; 97116; 97161; 99285; A4620; A6219; A6257; A6402; A6449; A7000; C1750; C1894; C9113; G0257; J0713; J0885; J1644; J2001; J2250; J2270; J2405; J2543; J2704; J3010; J3370; J3480; J3490; J7030; J7120; J7507

== ENCOUNTER 2018-07-12 18:40 | Inpatient (IN) | payer MEDICARE, MEDICAID ==
[~2018-07-12] VITALS: Ht 165.1 cm; Wt 51.9 kg
[~2018-07-12 18:40] MED LIST changes: +ALBU18HF2 INH; +ALBU2.5V12 NEB; -CEPH-571 PO; +CHOL500026 PO; +CINA30TA PO; +DILT120T4 PO; +DOXE10CA2 PO; +ERGO500054 PO; +GENT30OI2 TOP; +MONT10TA24 PO; +MYCO360T3 PO; +SEVE800T8 PO; +TACR1CAP28 PO; +TACR5CAP8 PO; +TIOT4MIS5
--- NOTE | 2018-07-12 20:30 | NUR ---
Pt seen by dr. hart and dr. mccollum consulted. pt will be admitted. Transfered to main ER bed 10.
[2018-07-12] MEDS ORDERED: MOME13HF2 PO (20:51)
[2018-07-12] MEDS ORDERED: APIX5TAB3 PO (20:52)
[2018-07-12] MEDS ORDERED: HYDR-4383 PO (20:54)
[2018-07-12] MEDS ORDERED: TRAM50TA2 PO (20:54)
[2018-07-12 21:11] LABS: ALANINE AMINOTRANSFERASE 20 U/L (12-78); ALBUMIN 1.8 G/DL (3.4-5.0); ALBUMIN/GLOBULIN RATIO 0.4 (1.1-1.5); ALKALINE PHOSPHATASE 177 IU/L (46-116); ANION GAP 13 (8-16); ASPARTATE AMINO TRANSFERASE 18 U/L (10-37); BILIRUBIN,TOTAL 0.3 MG/DL (0.1-1.0); BLOOD UREA NITROGEN 86 MG/DL (7-18); BUN/CREATININE RATIO 7.7 (6.6-38.0); CALCIUM 8.1 MG/DL (8.5-10.1); CHLORIDE 95 MMOL/L (99-107); GLUCOSE 91 MG/DL (70-104); POTASSIUM 3.7 MMOL/L (3.5-5.1); SODIUM 136 MMOL/L (135-145); TOTAL CARBON DIOXIDE 27.8 MMOL/L (24-32); TOTAL PROTEIN 6.1 G/DL (6.4-8.2); eGFR 4 ML/MIN
[2018-07-12 21:12] LABS: INR 1.2 INR; PROTHROMBIN TIME 11.6 SECONDS (9.0-12.0)
[2018-07-12 21:18] LABS: BASOPHILS % (AUTO) 0.4 % (0-1); EOSINOPHILS # (AUTO) 0.4 X10'3 (0-0.9); EOSINOPHILS % (AUTO) 3.1 % (0-6); HEMATOCRIT 26.6 % (35.0-45.0); HEMOGLOBIN 8.7 g/dl (12.0-16.0); LYMPHOCYTES # (AUTO) 0.6 X10'3 (1.1-4.8); LYMPHOCYTES % (AUTO) 5.1 % (21-51); MEAN CORPUSCULAR HEMOGLOBIN 30.3 PG (27.0-31.0); MEAN CORPUSCULAR HGB CONC 32.5 % (33.0-36.5); MEAN CORPUSCULAR VOLUME 93.1 FL (78-98); MONOCYTES # (AUTO) 0.7 X10'3 (0-0.9); MONOCYTES % (AUTO) 5.6 % (2-12); NEUTROPHILS # (AUTO) 10.4 X10'3 (1.8-7.7); NEUTROPHILS % (AUTO) 85.8 % (42-75); RED BLOOD COUNT 2.86 X10'6 (4.20-5.60); RED CELL DISTRIBUTION WIDTH 17.5 % (11.5-14.5); WHITE BLOOD COUNT 12.1 X10'3 (4.5-11.0)
[2018-07-12 21:52] LABS: MEAN PLATELET VOLUME 7.7 FL (7.4-10.4); PLATELET COUNT 549 X10'3 (140-440)
--- NOTE | 2018-07-12 22:00 | NUR ---
Patient in ED preparing for transfer to ICU 2044. I have received report from IGNACIO Poole and had the opportunity to ask questions and await patient.
[2018-07-12] MEDS ORDERED: acetaminophen 650mg rectal suppository RC PRN (22:05)
[2018-07-12] MEDS ORDERED: ipratropium/albuterol 3ml nebule NEB PRN (22:05)
[2018-07-12] MEDS ORDERED: acetaminophen 325mg tablet PO PRN ×2 (22:05)
[2018-07-12] MEDS ORDERED: morphine 4 MG/ML inj SYRINge IV PRN ×2 (22:05)
[2018-07-12 22:07] LABS: ANISOCYTOSIS 1+; PLATELET ESTIMATE INCREASED; POLYCHROMASIA 1+; TOTAL CELLS COUNTED 100
[2018-07-12] MEDS ORDERED: non-formulary drug (Albuterol Sulfate (Ventolin Hfa) 2 PUFFS) INH SCH (22:15)
[2018-07-12] MEDS ORDERED: doxepin 10mg capsule PO ONE (22:15)
[2018-07-12] MEDS ORDERED: gentamicin 0.1% topical ointment 15gm TP PRN (22:15)
[2018-07-12] MEDS ORDERED: HYDROcodone/acetaminophen 5mg/325mg tablet PO PRN ×2 (22:15→22:30)
[2018-07-12] MEDS ORDERED: heparin 10,000 units/1 ML INJ IV PRN (22:20)
[2018-07-12] MEDS ORDERED: heparin 10,000 units/1 ML INJ IV ONE (22:20)
[2018-07-12] MEDS ORDERED: iohexol 350MG/ML 100ml bottle IV ONE (22:23)
[2018-07-12 23:00] VITALS: BP 157/99
[2018-07-12 23:00] LABS: PARTIAL THROMBOPLASTIN TIME 33 SECONDS (22-32)
[2018-07-12] MEDS: ondansetron/PF 4mg/2ml inj IV PRN (23:49)
[2018-07-13] VITALS (25 sets, daily range): BP systolic 138–166; BP diastolic 93–114
--- NOTE | 2018-07-13 | NUR ---
Pt has peritoneal dialysis catheter on RLQ, dressing CDI, pt changes daily with dialysis.
[2018-07-13] MEDS: heparin 25,000 UNIT/250ml bag 250 ML IV SCH ×2 (00:07→20:52)
--- NOTE | 2018-07-13 00:30 | NUR ---
On right side, pt has no brachial pulse, intermittant radial pulse with doppler, and a normal palpated axillary pulse.
[2018-07-13] MEDS ORDERED: non-formulary drug (Albuterol Sulfate 1 VIAL) NEB SCH (02:00)
[2018-07-13] MEDS ORDERED: ipratropium/albuterol 3ml nebule NEB SCH (03:00)
--- NOTE | 2018-07-13 03:00 | NUR ---
Per Dr Steinberg, pt will have angiogram this morning.
[2018-07-13] MEDS ORDERED: midazolam 2 mg/2 ml injection IV PRN (06:05)
[2018-07-13] MEDS ORDERED: fentaNYL/PF 50MCG/1 ML 2ML syringe IV PRN (06:05)
[2018-07-13] MEDS ORDERED: heparin 1,000 UNITS/NS 500ml 500 ML ICATH ONE (06:05)
[2018-07-13] MEDS ORDERED: normal saline 1000ml 1,000 ML IV SCH (06:05)
[2018-07-13] MEDS ORDERED: LIDOcaine 1%/PF 5ML 10 MG/ML VIAL SQ ONE (06:05)
[2018-07-13 06:14] LABS: BASOPHILS % (AUTO) 0.3 % (0-1); EOSINOPHILS # (AUTO) 0.2 X10'3 (0-0.9); EOSINOPHILS % (AUTO) 2.5 % (0-6); HEMATOCRIT 28.1 % (35.0-45.0); HEMOGLOBIN 9.2 g/dl (12.0-16.0); LYMPHOCYTES # (AUTO) 0.6 X10'3 (1.1-4.8); LYMPHOCYTES % (AUTO) 5.8 % (21-51); MEAN CORPUSCULAR HGB CONC 32.8 % (33.0-36.5); MEAN CORPUSCULAR VOLUME 94.8 FL (78-98); MEAN PLATELET VOLUME 7.7 FL (7.4-10.4); MONOCYTES # (AUTO) 0.6 X10'3 (0-0.9); MONOCYTES % (AUTO) 6.1 % (2-12); NEUTROPHILS # (AUTO) 8.3 X10'3 (1.8-7.7); NEUTROPHILS % (AUTO) 85.3 % (42-75); PLATELET COUNT 465 X10'3 (140-440); RED BLOOD COUNT 2.97 X10'6 (4.20-5.60); RED CELL DISTRIBUTION WIDTH 17.2 % (11.5-14.5); WHITE BLOOD COUNT 9.7 X10'3 (4.5-11.0)
[2018-07-13 06:15] LABS: ALANINE AMINOTRANSFERASE 19 U/L (12-78); ALBUMIN 1.7 G/DL (3.4-5.0); ALBUMIN/GLOBULIN RATIO 0.4 (1.1-1.5); ALKALINE PHOSPHATASE 169 IU/L (46-116); ANION GAP 15 (8-16); ASPARTATE AMINO TRANSFERASE 19 U/L (10-37); BILIRUBIN,TOTAL 0.3 MG/DL (0.1-1.0); BLOOD UREA NITROGEN 85 MG/DL (7-18); BUN/CREATININE RATIO 7.7 (6.6-38.0); CALCIUM 8.2 MG/DL (8.5-10.1); CHLORIDE 94 MMOL/L (99-107); CREATININE 11.01 MG/DL (0.40-0.90); GLUCOSE 92 MG/DL (70-104); MAGNESIUM 1.4 MG/DL (1.5-2.4); PHOSPHORUS 8.4 MG/DL (2.3-4.5); POTASSIUM 4.3 MMOL/L (3.5-5.1); SODIUM 134 MMOL/L (135-145); TOTAL CARBON DIOXIDE 25.3 MMOL/L (24-32); eGFR 4 ML/MIN
[2018-07-13] MEDS ORDERED: iohexol 300mg/ml 100ml inj. ONE (06:22)
[2018-07-13] MEDS ORDERED: LIDOcaine 1%/PF 5ML 10 MG/ML VIAL ONE (06:22)
--- NOTE | 2018-07-13 06:22 | NUR ---
Problems reprioritized. Patient report given, questions answered & plan of care reviewed with IGNACIO Bhardwaj.
--- NOTE | 2018-07-13 06:32 | NUR ---
Patient down to IR with RN; Heparin gtt turned off per IR nurse.
[2018-07-13] MEDS ORDERED: midazolam 2 mg/2 ml injection ONE (06:47)
[2018-07-13] MEDS ORDERED: fentaNYL/PF 50MCG/1 ML 2ML syringe ONE (06:49)
[2018-07-13] MEDS ORDERED: heparin 1,000 UNITS/NS 500ml 500 ML ONE (06:49)
[2018-07-13 06:56] LABS: INR 1.2 INR; PROTHROMBIN TIME 11.7 SECONDS (9.0-12.0)
[2018-07-13] MEDS: sevelamer carbonate 800mg tablet PO SCH ×3 (07:30→17:30)
[2018-07-13] MEDS ORDERED: pantoprazole 40mg Tablet.DR PO SCH (07:30)
[2018-07-13] MEDS ORDERED: cinacalcet 30mg tablet PO SCH (08:00)
[2018-07-13] MEDS ORDERED: vitamin D (cholecalciferol) 1,000 unit tablet PO SCH (08:00)
[2018-07-13] MEDS ORDERED: diltiazem CD 120mg capsule (once-daily) PO SCH (08:00)
[2018-07-13] MEDS ORDERED: TIOTROPIUM BROMIDE SCH (08:00)
[2018-07-13] MEDS ORDERED: apixaban 5mg tablet PO SCH (08:00)
[2018-07-13] MEDS ORDERED: montelukast 10mg tablet PO SCH (08:00)
[2018-07-13] MEDS ORDERED: traMADol 50MG tablet PO PRN (08:00)
[2018-07-13] MEDS: budesonide 0.5mg/2ml UD nebule IH SCH ×2 (08:04→19:58)
[2018-07-13] MEDS: cinacalcet 30mg tablet PO SCH ×3 (10:16→20:47)
[2018-07-13] MEDS: tacrolimus anhydrous 1mg capsule PO SCH ×4 (10:17→20:48)
[2018-07-13] MEDS: docusate sod 100mg capsule PO SCH ×2 (10:18→20:47)
[2018-07-13] MEDS: mycophenolate sod SR tablet 180 MG TABLET.DR PO SCH ×2 (10:19→20:47)
[2018-07-13] MEDS ORDERED: [UNRECOGNIZED DRUG - CODE] IV (18:26)
--- NOTE | 2018-07-13 18:29 | NUR ---
[facility] called to confirm a bed is available in their telemetry unit and they faxed the information to transfer summary. Dr. Alvarez aware and working on transfer summary. Patient confirms that she wants to go to [facility]. Per Dr. Alvarez, he would still like us to start peritoneal dialysis and to stop whenever the patient is picked up. [employer] is actively working on transportation. Bedside report given Alondra PIERRE.
--- NOTE | 2018-07-13 18:30 | NUR ---
Patient in room ICU 2044. I have received report from IGNACIO Bhardwaj and had the opportunity to ask questions and assume patient care.
--- NOTE | 2018-07-13 19:15 | NUR ---
Edilma from [facility] needs transfer summary needs transfer back agreement and discharge summary faxed to [phone], completed.
[2018-07-13] MEDS: ondansetron/PF 4mg/2ml inj IV PRN (19:47)
--- NOTE | 2018-07-13 20:00 | NUR ---
Edilma from [facility] confirmed pt will be going to Tele unit D2 which is on the 2nd floor bed D222B. Requested H&P, discharge summary, diagnostic CD, labs, meds, and any other pertinent info to be sent with pt.
--- NOTE | 2018-07-13 20:15 | NUR ---
Nursing switchboard operator supervisor and charge nurse notified that bed has been provided, they will work on transport.
[2018-07-13] MEDS ORDERED: doxepin 10mg capsule PO SCH (21:00)
--- NOTE | 2018-07-13 21:00 | NUR ---
Pt will be transported via [facility] 5 fixed wing aircraft with possible ETA [id number].
--- NOTE | 2018-07-13 22:45 | NUR ---
[facility] crew arrived to transport pt via ambulance and then fixed wing. Pt transferred to their clinical research monitor and IV pumps with Heparin running at 600units/hr. Patient report given, questions answered & plan of care reviewed with Bea from [facility]. All of patients remaining belongings (pants, shirt, robe, sweater, slippers, socks, cell phone and linseed oil refiner) sent with her, son took home her purse and other valuables.
--- NOTE | 2018-07-14 08:24 | NUR ---
Pt d/c'd before SS assessment.
[2018-07-14] MEDS ORDERED: lactulose 20gm/30ml cup PO PRN (22:05)
== END 2018-07-13 22:45 | disposition short-term general hospital (02) | DRG 299 ==
LOC: ER 18:40 → ED HOLD 22:01 → ICU 2S 22:49
PROVIDERS: ADMIT Internal Medicine Critical Care Medicine; ATTEND Internal Medicine Critical Care Medicine
PROC: BP2T1ZZ Computerized Tomography (CT Scan) of Right Upper Extremity using Low Osmolar Contrast (ICD-10-PCS; principal; 2018-07-12)
PROC: B41F1ZZ Fluoroscopy of Right Lower Extremity Arteries using Low Osmolar Contrast (ICD-10-PCS; 2018-07-13)
PROC: B31H1ZZ Fluoroscopy of Right Upper Extremity Arteries using Low Osmolar Contrast (ICD-10-PCS; 2018-07-13)
DX: I74.2 Embolism and thrombosis of arteries of the upper extremities (principal); N18.6 End stage renal disease; I12.0 Hypertensive chronic kidney disease with stage 5 chronic kidney disease or end stage renal disease; T86.12 Kidney transplant failure; G89.29 Other chronic pain; Y83.0 Surgical operation with transplant of whole organ as the cause of abnormal reaction of the patient, or of later complication, without mention of misadventure at the time of the procedure; I48.91 Unspecified atrial fibrillation; J45.909 Unspecified asthma, uncomplicated; Z53.8 Procedure and treatment not carried out for other reasons; Z90.5 Acquired absence of kidney; Z99.2 Dependence on renal dialysis; Z79.899 Other long term (current) drug therapy; Z79.51 Long term (current) use of inhaled steroids; Z87.891 Personal history of nicotine dependence
CPT/HCPCS: 36218; 99285; G0269; 36415; 73206; 75710; 80053; 83735; 84100; 85025; 85610; 85730; 86885; 86900; 86901; 87070; 93971; 94760; 99152; 99153; C1760; C1769; C1894; G0378; J1644; J2001; J2250; J2405; J3010; J7507; J7626; Q9967

== ENCOUNTER 2018-10-02 16:36 | Inpatient (IN) | payer MEDICARE, MEDICAID | END 2018-11-12 17:45 | disposition home or self-care (01) | LOC: SUR 3N 10-07 11:12 → ER 16:36 → SUR 3N 10-06 20:53 → ICU 2S 10-03 14:21 → SUR 3N 10-06 21:55 → ED HOLD 22:37 | DX: I74.3 Embolism and thrombosis of arteries of the lower extremities (principal); A41.9 Sepsis, unspecified organism; I77.77 Dissection of artery of lower extremity; N18.6 End stage renal disease; E43 Unspecified severe protein-calorie malnutrition; L97.119 Non-pressure chronic ulcer of right thigh with unspecified severity; I12.0 Hypertensive chronic kidney disease with stage 5 chronic kidney disease or end stage renal disease; Z94.0 Kidney transplant status; E83.59 Other disorders of calcium metabolism; I73.9 Peripheral vascular disease, unspecified; D64.9 Anemia, unspecified; I99.8 Other disorder of circulatory system ==